=== PATIENT | female | born 1960 | race Hispanic/Latino ===

== ENCOUNTER 2020-09-02 21:17 | Inpatient (IN) | payer OTHER ==
[~2020-09-02] VITALS: Ht 160 cm; Wt 87.1 kg
[2020-09-02] MEDS ORDERED: ALBUTEROL SULF 0.083% NEB SOLN 3 ML NEB NEB STA (21:27)
[2020-09-02] MEDS ORDERED: IPRATROPIUM BROMIDE 0.02% 2.5 ML NEB NEB ONE (21:30)
[2020-09-02] MEDS ORDERED: METHYLPREDNISOLONE SOD SUCC 125 MG/2ML VIAL IV ONE (21:30)
[2020-09-02 21:47] LABS: BASOPHILS # (AUTO) 0.1 (0.0-0.1); BASOPHILS % 0.7 % (0.0-1.0); EOSINOPHILS # (AUTO) 0.2 (0.0-0.4); HEMATOCRIT 48.4 % (34.2-44.1); HEMOGLOBIN 15.4 g/dL (12.0-16.0); LYMPHOCYTES # (AUTO) 1.9 (1.0-3.2); LYMPHOCYTES % 11.5 % (18.0-39.1); MEAN CORPUSCULAR HEMOGLOBIN 29.5 pg (28-32); MEAN CORPUSCULAR HGB CONC 31.8 g/dL (31-35); MEAN CORPUSCULAR VOLUME 92.7 fL (81-99); MONOCYTES # (AUTO) 1.1 (0.2-0.8); MONOCYTES % 6.6 % (4.4-11.3); NEUTROPHILS % 79.5 % (38.7-80.0); PLATELET COUNT 304 x10e3/uL (140-360); RED BLOOD COUNT 5.22 x10e6/uL (3.6-5.1); RED CELL DISTRIBUTION WIDTH 14.6 % (11.7-14.4)
[2020-09-02 22:06] LABS: ALANINE AMINOTRANSFERASE 82 IU/L (0-55); ALBUMIN 3.4 g/dL (3.5-5.0); ALBUMIN/GLOBULIN RATIO 1.3 (0.8-2.0); ALKALINE PHOSPHATASE 133 IU/L (40-150); BLOOD UREA NITROGEN 11 mg/dL (7-26); BUN/CREATININE RATIO 13 (6-25); CALCIUM 8.4 mg/dL (8.4-10.2); CARBON DIOXIDE 32 mmol/L (22-29); CHLORIDE 91 mmol/L (98-107); CREATINE KINASE 43 IU/L (29-168); CREATININE, SERUM 0.85 mg/dL (0.57-1.11); EST GLOMERULAR FILTRATION RATE > 60 ML/MIN (60-); GLUCOSE 103 mg/dL (74-118); SODIUM 134 mmol/L (136-145)
[2020-09-02] MEDS ORDERED: ASPIRIN 81 MG CHEW TAB PO ONE (22:45)
[2020-09-02] MEDS ORDERED: SODIUM CHLORIDE FLUSH 10 ML SYR INJ PRN (23:00)
[2020-09-02] MEDS ORDERED: SODIUM CHLORIDE 0.9% 50ML 50 ML ONE (23:17)
[2020-09-02] MEDS: CEFTRIAXONE SOD 1 GM VIAL IV SCH (23:26)
[2020-09-02] MEDS: AZITHROMYCIN 500MG/SOD CHL 0.9% 250ML BAG IV SCH (23:42)
[2020-09-03] VITALS (8 sets, daily range): BP systolic 112–146; BP diastolic 67–85
[2020-09-03] MEDS ORDERED: INFLUENZA VIRUS VAC SPLIT INJ 0.5 ML SYR IM SCH (02:02)
[2020-09-03] MEDS: ALBUTEROL/IPRATROPIUM 3 ML NEB NEB SCH ×6 (03:20→23:45)
[2020-09-03 03:44] LABS: CREATINE KINASE MB 2.6 ng/mL (0-5.0)
[2020-09-03] MEDS ORDERED: ACETAMINOPHEN 325 MG TAB PO PRN (05:45)
[2020-09-03] MEDS ORDERED: METHYLPREDNISOLONE SOD SUCC 40 MG/ML VIAL 1ML IV SCH (06:00)
[2020-09-03] MEDS: ACETAMIN/BUTALBITAL/CAFFEINE TAB PO PRN ×2 (06:10→18:05)
[2020-09-03] MEDS: ASPIRIN 81 MG CHEW TAB PO SCH (10:45)
[2020-09-03] MEDS ORDERED: HYDRALAZINE HCL 20 MG/ML VIAL IV PRN (11:15)
[2020-09-03] MEDS ORDERED: MELATONIN 5 MG TABLET PO PRN (11:15)
[2020-09-03] MEDS ORDERED: ONDANSETRON HCL INJ 2MG/ML 2ML 2 MG/ML VIAL IV PRN (11:15)
[2020-09-03] MEDS ORDERED: ALBUTEROL/IPRATROPIUM 3 ML NEB NEB PRN (11:15)
[2020-09-03] MEDS ORDERED: POTASSIUM CHLORIDE 10MEQ EA PO ONE (12:30)
[2020-09-03] MEDS ORDERED: FUROSEMIDE INJ 10 MG/ML 4 ML VIAL IV ONE ×2 (12:30→19:00)
[2020-09-03 12:34] LABS: BASOPHILS % 0.2 % (0.0-1.0); EOSINOPHILS % 0.2 % (0.0-6.0); HEMATOCRIT 50.7 % (34.2-44.1); HEMOGLOBIN 15.9 g/dL (12.0-16.0); LYMPHOCYTES # (AUTO) 0.4 (1.0-3.2); LYMPHOCYTES % 3.3 % (18.0-39.1); MEAN CORPUSCULAR HEMOGLOBIN 29.1 pg (28-32); MEAN CORPUSCULAR HGB CONC 31.4 g/dL (31-35); MEAN CORPUSCULAR VOLUME 92.7 fL (81-99); MONOCYTES # (AUTO) 0.2 (0.2-0.8); MONOCYTES % 1.6 % (4.4-11.3); NEUTROPHILS # (AUTO) 10.9 (2.1-6.9); NEUTROPHILS % 93.9 % (38.7-80.0); PLATELET COUNT 294 x10e3/uL (140-360); RED BLOOD COUNT 5.47 x10e6/uL (3.6-5.1); RED CELL DISTRIBUTION WIDTH 14.3 % (11.7-14.4)
[2020-09-03 12:57] LABS: ANION GAP 18.4 mmol/L (8-16); BLOOD UREA NITROGEN 17 mg/dL (7-26); BUN/CREATININE RATIO 20 (6-25); CALCIUM 8.8 mg/dL (8.4-10.2); CARBON DIOXIDE 32 mmol/L (22-29); CHLORIDE 87 mmol/L (98-107); CREATININE, SERUM 0.86 mg/dL (0.57-1.11); EST GLOMERULAR FILTRATION RATE > 60 ML/MIN (60-); GLUCOSE 166 mg/dL (74-118); POTASSIUM 4.4 mmol/L (3.5-5.1); SODIUM 133 mmol/L (136-145)
[2020-09-03] MEDS ORDERED: ZOLPIDEM TARTRATE 5 MG TAB PO PRN (13:45)
[2020-09-03 14:03] LABS: CREATINE KINASE MB 2.5 ng/mL (0-5.0)
[2020-09-03] MEDS: NICOTINE 21 MG/EA PATCH TOP SCH (15:56)
[2020-09-03] MEDS: FAMOTIDINE 20 MG TAB PO SCH (17:14)
[2020-09-03] MEDS: METHYLPREDNISOLONE SOD SUCC 40 MG/ML VIAL 1ML IV SCH (17:14)
[2020-09-03] MEDS ORDERED: INTEGRA F CAPS1 EACH PO (17:51)
[2020-09-03] MEDS ORDERED: CHANTIX1 MG PO (17:51)
[2020-09-03] MEDS ORDERED: VITAMIN B-225 MG PO (17:51)
[2020-09-03] MEDS ORDERED: SYMBICORT 16010.2 GM INH (17:51)
[2020-09-03] MEDS ORDERED: TRAZODONE HCL100 MG PO (17:51)
[2020-09-03] MEDS ORDERED: FOLIC ACID0.4 MG PO (17:51)
[2020-09-03] MEDS ORDERED: ATENOLOL50 MG PO (17:51)
[2020-09-03] MEDS ORDERED: ALBUTEROL IH (17:51)
[2020-09-03] MEDS ORDERED: PROAIR HFA INH8.5 GM INH (17:51)
[2020-09-03] MEDS ORDERED: VITAMIN B-121000 MCG PO (17:51)
[2020-09-03] MEDS: BUDESONIDE/FORMOTEROL 160/4.5MCG INHALER INH SCH (19:32)
[2020-09-03] MEDS ORDERED: SODIUM CHLORIDE 0.9% 50ML 50 ML ONE (22:48)
[2020-09-03] MEDS: CEFTRIAXONE SOD 1 GM VIAL IV SCH (23:00)
[2020-09-03] MEDS ORDERED: SODIUM CHLORIDE 0.9% 250ML 250 ML ONE (23:08)
[2020-09-03] MEDS: AZITHROMYCIN 500MG/SOD CHL 0.9% 250ML BAG IV SCH (23:30)
[2020-09-04] VITALS (9 sets, daily range): BP systolic 121–130; BP diastolic 54–72
[2020-09-04] MEDS: ALBUTEROL/IPRATROPIUM 3 ML NEB NEB SCH ×6 (03:40→23:40)
[2020-09-04] MEDS: METHYLPREDNISOLONE SOD SUCC 40 MG/ML VIAL 1ML IV SCH ×2 (06:00→17:33)
[2020-09-04] MEDS: FAMOTIDINE 20 MG TAB PO SCH ×2 (08:39→17:33)
[2020-09-04] MEDS: ATENOLOL 50 MG TAB PO SCH (08:42)
[2020-09-04] MEDS: ASPIRIN 81 MG CHEW TAB PO SCH (08:42)
[2020-09-04] MEDS: LISINOPRIL 10 MG TAB PO SCH (08:42)
[2020-09-04] MEDS: ACETAMIN/BUTALBITAL/CAFFEINE TAB PO PRN (08:42)
[2020-09-04] MEDS: NICOTINE 21 MG/EA PATCH TOP SCH (08:43)
[2020-09-04] MEDS: BUDESONIDE/FORMOTEROL 160/4.5MCG INHALER INH SCH ×2 (08:55→19:25)
[2020-09-04] MEDS ORDERED: HYDROCHLOROTHIAZIDE 25 MG TAB PO SCH (09:00)
[2020-09-04] MEDS: FUROSEMIDE INJ 10 MG/ML 2 ML VIAL IV SCH (14:23)
[2020-09-04] MEDS: POTASSIUM CHLORIDE 10MEQ EA PO SCH (14:23)
[2020-09-04] MEDS ORDERED: SODIUM CHLORIDE 0.9% 50ML 50 ML ONE (22:51)
[2020-09-04] MEDS: CEFTRIAXONE SOD 1 GM VIAL IV SCH (23:00)
[2020-09-04] MEDS: AZITHROMYCIN 500MG/SOD CHL 0.9% 250ML BAG IV SCH (23:45)
[2020-09-05] VITALS (7 sets, daily range): BP systolic 122–140; BP diastolic 64–87
[2020-09-05] MEDS: ACETAMIN/BUTALBITAL/CAFFEINE TAB PO PRN (02:00)
[2020-09-05] MEDS: ALBUTEROL/IPRATROPIUM 3 ML NEB NEB SCH ×5 (02:49→20:43)
[2020-09-05] MEDS: METHYLPREDNISOLONE SOD SUCC 40 MG/ML VIAL 1ML IV SCH ×2 (06:22→16:25)
[2020-09-05 06:52] LABS: BASOPHILS % 0.1 % (0.0-1.0); HEMATOCRIT 47.3 % (34.2-44.1); HEMOGLOBIN 14.4 g/dL (12.0-16.0); LYMPHOCYTES # (AUTO) 0.5 (1.0-3.2); LYMPHOCYTES % 2.7 % (18.0-39.1); MEAN CORPUSCULAR HEMOGLOBIN 29.4 pg (28-32); MEAN CORPUSCULAR HGB CONC 30.4 g/dL (31-35); MEAN CORPUSCULAR VOLUME 96.7 fL (81-99); MONOCYTES # (AUTO) 0.9 (0.2-0.8); MONOCYTES % 4.7 % (4.4-11.3); NEUTROPHILS # (AUTO) 17.2 (2.1-6.9); NEUTROPHILS % 91.6 % (38.7-80.0); PLATELET COUNT 247 x10e3/uL (140-360); RED BLOOD COUNT 4.89 x10e6/uL (3.6-5.1); RED CELL DISTRIBUTION WIDTH 14.5 % (11.7-14.4)
[2020-09-05] MEDS: BUDESONIDE/FORMOTEROL 160/4.5MCG INHALER INH SCH ×2 (07:03→20:43)
[2020-09-05 07:13] LABS: ALANINE AMINOTRANSFERASE 42 IU/L (0-55); ALBUMIN 3.4 g/dL (3.5-5.0); ALBUMIN/GLOBULIN RATIO 1.3 (0.8-2.0); ALKALINE PHOSPHATASE 87 IU/L (40-150); ANION GAP 11.5 mmol/L (8-16); BLOOD UREA NITROGEN 15 mg/dL (7-26); BUN/CREATININE RATIO 19 (6-25); CALCIUM 8.7 mg/dL (8.4-10.2); CARBON DIOXIDE 39 mmol/L (22-29); CHLORIDE 88 mmol/L (98-107); CREATININE, SERUM 0.79 mg/dL (0.57-1.11); EST GLOMERULAR FILTRATION RATE > 60 ML/MIN (60-); GLUCOSE 140 mg/dL (74-118); POTASSIUM 4.5 mmol/L (3.5-5.1); SODIUM 134 mmol/L (136-145)
[2020-09-05] MEDS: POTASSIUM CHLORIDE 10MEQ EA PO SCH (08:11)
[2020-09-05] MEDS: FAMOTIDINE 20 MG TAB PO SCH ×2 (08:11→16:25)
[2020-09-05] MEDS: NICOTINE 21 MG/EA PATCH TOP SCH (08:11)
[2020-09-05] MEDS: ATENOLOL 50 MG TAB PO SCH (08:11)
[2020-09-05] MEDS: FUROSEMIDE INJ 10 MG/ML 2 ML VIAL IV SCH (08:11)
[2020-09-05] MEDS: LISINOPRIL 10 MG TAB PO SCH (08:11)
[2020-09-05] MEDS: ASPIRIN 81 MG CHEW TAB PO SCH (08:11)
[2020-09-05 08:17] LABS: LYMPHOCYTES % (MANUAL) 3 % (19-48); MONOCYTES % (MANUAL) 7 % (3.4-9.0); NEUTROPHILS % (MANUAL) 90 % (40-74)
[2020-09-05 08:18] LABS: PLATELET ESTIMATE ADEQUATE; PLATELET MORPHOLOGY COMMENT RARE EDTA CLUMPING; RBC MORPHOLOGY COMMENT NORMAL
[2020-09-05] MEDS ORDERED: AZITHROMYCIN 500MG/NS 250 ML 250 ML IV ONE (17:00)
[2020-09-05] MEDS ORDERED: CEFTRIAXONE SOD 1 GM/50 ML BAG IV ONE (17:00)
[2020-09-05] MEDS ORDERED: PROAIR HFA INH8.5 GM INH (17:05)
[2020-09-05] MEDS ORDERED: PREDNISONE10 MG PO (17:05)
[2020-09-05] MEDS ORDERED: CEFDINIR300 MG PO (17:05)
[2020-09-05] MEDS ORDERED: NICOTINE PATCH1 EAC2 TOP (17:08)
[2020-09-05] MEDS ORDERED: CEFTRIAXONE SOD 1 GM in SODIUM CHLORIDE 0.9% 50ML 50 ML IV ONE (17:45)
[2020-09-05] MEDS ORDERED: INFLUENZA VIRUS VAC SPLIT INJ 0.5 ML SYR IM NR (20:00)
== END 2020-09-05 20:45 | disposition home or self-care (01) | DRG 280 ==
LOC: ER 21:29 → ERHOLD 22:59 → MED/SURG3 09-03 00:08
PROVIDERS: ADMIT Internal Medicine; ATTEND Internal Medicine
DX: I21.A1 Myocardial infarction type 2 (principal); I50.43 Acute on chronic combined systolic (congestive) and diastolic (congestive) heart failure; J44.1 Chronic obstructive pulmonary disease with (acute) exacerbation; E87.1 Hypo-osmolality and hyponatremia; I11.0 Hypertensive heart disease with heart failure; F17.210 Nicotine dependence, cigarettes, uncomplicated; Z20.822 Contact with and (suspected) exposure to COVID-19; R09.02 Hypoxemia; I07.1 Rheumatic tricuspid insufficiency
CPT/HCPCS: 36415; 71045; 71250; 80048; 80053; 82550; 82553; 83880; 84484; 85025; 85379; 87040; 93005; 93306; 94640; 94664; 99284; J0456; J0696; J1940; J2920; J2930; J7050; U0002

== ENCOUNTER 2021-04-23 22:21 | Emergency (ER) | payer OTHER ==
[~2021-04-23] VITALS: Ht 165.1 cm; Wt 81.6 kg
[~2021-04-23 22:21] MED LIST: ALBUTEROL IH; ATENOLOL50 MG PO; CEFDINIR300 MG PO; CHANTIX1 MG PO; FOLIC ACID0.4 MG PO; INTEGRA F CAPS1 EACH PO; NICOTINE PATCH1 EAC2 TOP; PREDNISONE10 MG PO; PROAIR HFA INH8.5 GM INH; SYMBICORT 16010.2 GM INH; TRAZODONE HCL100 MG PO; VITAMIN B-121000 MCG PO; VITAMIN B-225 MG PO
[2021-04-23] MEDS ORDERED: KETOROLAC TROMETHAMINE 30 MG/ML VIAL IV STA (22:39)
[2021-04-23] MEDS ORDERED: ASPIRIN 81 MG CHEW TAB PO STA (22:39)
[2021-04-23] MEDS ORDERED: ALBUTEROL/IPRATROPIUM 3 ML NEB NEB ONE (22:45)
[2021-04-23] MEDS ORDERED: METHYLPREDNISOLONE SOD SUCC 125 MG/2ML VIAL IV ONE (22:45)
[2021-04-23 22:52] LABS: BASOPHILS # (AUTO) 0.1 (0.0-0.1); BASOPHILS % 0.7 % (0.0-1.0); EOSINOPHILS # (AUTO) 0.1 (0.0-0.4); EOSINOPHILS % 0.8 % (0.0-6.0); HEMATOCRIT 31.2 % (34.2-44.1); HEMOGLOBIN 10.1 g/dL (12.0-16.0); LYMPHOCYTES # (AUTO) 1.9 (1.0-3.2); LYMPHOCYTES % 14.2 % (18.0-39.1); MEAN CORPUSCULAR HEMOGLOBIN 28.9 pg (28-32); MEAN CORPUSCULAR HGB CONC 32.4 g/dL (31-35); MEAN CORPUSCULAR VOLUME 89.1 fL (81-99); MONOCYTES % 7.4 % (4.4-11.3); NEUTROPHILS % 76.4 % (38.7-80.0); PLATELET COUNT 378 x10e3/uL (140-360); RED CELL DISTRIBUTION WIDTH 14.1 % (11.7-14.4)
[2021-04-23 22:56] LABS: INR 0.82
[2021-04-23 22:57] LABS: PARTIAL THROMBOPLASTIN TIME 28.9 seconds (23.8-35.5)
[2021-04-23 23:07] LABS: ALANINE AMINOTRANSFERASE 7 IU/L (0-55); ALBUMIN 2.7 g/dL (3.5-5.0); ALKALINE PHOSPHATASE 108 IU/L (40-150); ANION GAP 15.6 mmol/L (8-16); BLOOD UREA NITROGEN < 5 mg/dL (7-26); CHLORIDE 78 mmol/L (98-107); CREATINE KINASE 24 IU/L (29-168); EST GLOMERULAR FILTRATION RATE 74 ML/MIN (60-); GLUCOSE 106 mg/dL (74-118); SODIUM 132 mmol/L (136-145)
[2021-04-23 23:14] LABS: BUN/CREATININE RATIO 6 (6-25)
[2021-04-23 23:15] LABS: CARBON DIOXIDE 41 mmol/L (22-29); POTASSIUM 2.6 mmol/L (3.5-5.1)
[2021-04-23] MEDS ORDERED: POTASSIUM CHLORIDE 20 MEQ TAB CR PO STA (23:15)
[2021-04-23] MEDS ORDERED: POTASSIUM CHLORIDE 20MEQ/100ML 100 ML IV ONE (23:15)
[2021-04-23] MEDS ORDERED: SODIUM CHLORIDE 0.9% 1000ML 1,000 ML IV STA (23:22)
[2021-04-23] MEDS ORDERED: MAGNESIUM SULF 1GRAM/DEXTROSE 100 ML IV ONE (23:30)
[2021-04-24] MEDS ORDERED: MAGNESIUM SULF 1GRAM/DEXTROSE 100 ML IV ONE (03:02)
[2021-04-24 04:25] LABS: ANION GAP 15.9 mmol/L (8-16); CREATININE, SERUM 0.94 mg/dL (0.57-1.11)
[2021-04-24 04:28] LABS: POTASSIUM 3.9 mmol/L (3.5-5.1)
[2021-04-24] MEDS ORDERED: PREDNISONE50 MG PO (04:31)
[2021-04-24] MEDS ORDERED: AZITHROMYCIN250 MG PO (04:31)
[2021-04-24 05:13] VITALS: BP 98/51
== END 2021-04-24 05:16 | disposition home or self-care (01) ==
LOC: ER 22:25
DX: R06.03 Acute respiratory distress (principal); J44.1 Chronic obstructive pulmonary disease with (acute) exacerbation; I11.0 Hypertensive heart disease with heart failure; I50.9 Heart failure, unspecified; I25.10 Atherosclerotic heart disease of native coronary artery without angina pectoris; E87.6 Hypokalemia; R09.02 Hypoxemia; F17.203 Nicotine dependence unspecified, with withdrawal
CPT/HCPCS: 36415; 70450; 71045; 80048; 80053; 82550; 82553; 83735; 83880; 84484; 85025; 85610; 85730; 93005; 94640; 94799; 99284; J0456; J1885; J2930; J3475; J3480; J7050

== ENCOUNTER 2021-05-27 11:13 | Emergency (ER) | payer OTHER ==
[~2021-05-27] VITALS: Ht 165.1 cm; Wt 81.6 kg
[~2021-05-27 11:13] MED LIST changes: +AZITHROMYCIN250 MG PO; +PREDNISONE50 MG PO
[2021-05-27] MEDS ORDERED: VENTOLIN HFA18 GM INH ×2 (11:29→11:41)
[2021-05-27] MEDS ORDERED: PREDNISONE50 MG PO (11:29)
[2021-05-27] MEDS ORDERED: CEPHALEXIN500 MG PO (11:29)
[2021-05-27] MEDS ORDERED: BROMFED DM COU118 ML PO (11:29)
== END 2021-05-27 12:12 | disposition home or self-care (01) ==
LOC: ER 11:18
DX: J44.9 Chronic obstructive pulmonary disease, unspecified (principal); I10 Essential (primary) hypertension; I50.9 Heart failure, unspecified; I25.10 Atherosclerotic heart disease of native coronary artery without angina pectoris; R94.31 Abnormal electrocardiogram [ECG] [EKG]
CPT/HCPCS: 93005; 99283

== ENCOUNTER 2022-02-21 20:53 | Emergency (ER) | payer OTHER ==
[~2022-02-21] VITALS: Ht 165.1 cm; Wt 81.6 kg
[~2022-02-21 20:53] MED LIST changes: +BROMFED DM COU118 ML PO; +CEPHALEXIN500 MG PO; +VENTOLIN HFA18 GM INH
== END 2022-02-21 22:11 | disposition home or self-care (01) ==
LOC: ER 21:11
DX: M25.561 Pain in right knee (principal); M13.861 Other specified arthritis, right knee; I10 Essential (primary) hypertension; J44.9 Chronic obstructive pulmonary disease, unspecified; I50.9 Heart failure, unspecified; I25.10 Atherosclerotic heart disease of native coronary artery without angina pectoris
CPT/HCPCS: 99282

== ENCOUNTER 2022-04-29 20:42 | Emergency (ER) | payer OTHER ==
[~2022-04-29] VITALS: Ht 165.1 cm; Wt 77.1 kg
[2022-04-29] MEDS ORDERED: ONDANSETRON HCL INJ 2MG/ML 2ML 2 MG/ML VIAL IV STA (22:12)
[2022-04-30] MEDS ORDERED: OXYBUTYNIN CHLOR5 M1 PO (00:22)
[2022-04-30 00:45] VITALS: BP 134/60
== END 2022-04-30 00:45 | disposition home or self-care (01) ==
LOC: FSED 20:59
DX: R20.2 Paresthesia of skin (principal); R07.89 Other chest pain; R39.11 Hesitancy of micturition; I10 Essential (primary) hypertension; J44.9 Chronic obstructive pulmonary disease, unspecified; I50.9 Heart failure, unspecified; I25.10 Atherosclerotic heart disease of native coronary artery without angina pectoris; Z99.81 Dependence on supplemental oxygen; F17.210 Nicotine dependence, cigarettes, uncomplicated
CPT/HCPCS: 70450; 71046; 80048; 82553; 83880; 85025; 87400; 93005; 96374; 99284; J2405

== ENCOUNTER 2022-05-22 12:18 | Emergency (ER) | payer OTHER ==
[~2022-05-22] VITALS: Ht 165.1 cm; Wt 77.1 kg
[~2022-05-22 12:18] MED LIST changes: +ATORVASTATIN CA20 MG PO; +BACLOFEN10 MG PO; +FUROSEMIDE40 MG PO; +LIPITOR20 MG PO; +LOSARTAN POTASS25 MG PO; +OXYBUTYNIN CHLOR5 M1 PO; +POTASSIUM CHLO10 ME1 PO
== END 2022-05-22 14:06 | disposition home or self-care (01) ==
LOC: ER 12:37
DX: R33.9 Retention of urine, unspecified (principal); I10 Essential (primary) hypertension; J44.9 Chronic obstructive pulmonary disease, unspecified; I50.9 Heart failure, unspecified; I25.10 Atherosclerotic heart disease of native coronary artery without angina pectoris; Z99.81 Dependence on supplemental oxygen
CPT/HCPCS: 51700; 99282

== ENCOUNTER 2022-06-16 13:27 | Inpatient (IN) | payer OTHER ==
[~2022-06-16] VITALS: Ht 165.1 cm; Wt 77.1 kg
[2022-06-16 14:43] LABS: BASOPHILS # (AUTO) 0.1 (0.0-0.1); BASOPHILS % 0.5 % (0.0-1.0); EOSINOPHILS # (AUTO) 0.2 (0.0-0.4); HEMATOCRIT 42.8 % (34.2-44.1); HEMOGLOBIN 12.3 g/dL (12.0-16.0); LYMPHOCYTES % 12.2 % (18.0-39.1); MEAN CORPUSCULAR HEMOGLOBIN 25.3 pg (28-32); MEAN CORPUSCULAR HGB CONC 28.7 g/dL (31-35); MEAN CORPUSCULAR VOLUME 87.9 fL (81-99); MONOCYTES # (AUTO) 0.8 (0.2-0.8); MONOCYTES % 4.9 % (4.4-11.3); NEUTROPHILS # (AUTO) 13.3 (2.1-6.9); NEUTROPHILS % 80.9 % (38.7-80.0); PLATELET COUNT 495 x10e3/uL (140-360); RED BLOOD COUNT 4.87 x10e6/uL (3.6-5.1); RED CELL DISTRIBUTION WIDTH 14.6 % (11.7-14.4)
[2022-06-16] MEDS ORDERED: SODIUM CHLORIDE FLUSH 10 ML SYR IV PRN (14:45)
[2022-06-16] MEDS ORDERED: ASPIRIN 81 MG CHEW TAB PO ONE ×2 (15:00→17:45)
[2022-06-16 15:07] LABS: ALBUMIN 3.3 g/dL (3.5-5.0); ALBUMIN/GLOBULIN RATIO 0.9 (0.8-2.0); ANION GAP 14.9 mmol/L (8-16); CALCIUM 9.6 mg/dL (8.4-10.2); CREATININE, SERUM 0.67 mg/dL (0.57-1.11)
[2022-06-16 15:10] LABS: POTASSIUM 2.9 mmol/L (3.5-5.1)
[2022-06-16] MEDS ORDERED: CEFTRIAXONE 1 GM VIAL IV ONE (15:30)
[2022-06-16] MEDS ORDERED: CEFTRIAXONE 1 GM VIAL ONE (15:35)
[2022-06-16] MEDS ORDERED: NIRMATRELVIR/RITONAVIR 1 EACH BOX PO SCH (15:45)
[2022-06-16] MEDS ORDERED: POTASSIUM CHLORIDE 20 MEQ TAB CR PO NR (15:45)
[2022-06-16 17:35] LABS: CLARITY,URINE CLEAR (CLEAR); COLOR,URINE YELLOW (YELLOW); LEUKOCYTE ESTERASE ,URINE SMALL (NEGATIVE); NITRITE,URINE NEGATIVE (NEGATIVE)
[2022-06-16 17:36] LABS: KETONES,URINE TRACE (NEGATIVE); PROTEIN,URINE DIPSTICK 2+ (NEGATIVE); URINE UROBILINOGEN 1 mg/dL (0.2 - 1)
[2022-06-16 17:43] LABS: BACTERIA,URINE FEW /HPF; EPITHELIAL CELLS,URINE FEW /LPF
[2022-06-16] MEDS ORDERED: SODIUM CHLORIDE FLUSH 10 ML SYR INJ PRN (17:45)
[2022-06-16] MEDS ORDERED: ONDANSETRON HCL INJ 2MG/ML 2ML 2 MG/ML VIAL IV PRN (17:45)
[2022-06-16 19:30] VITALS: BP_SYST 4
[2022-06-16 19:30] LABS: CREATINE KINASE MB 0.5 ng/mL (0-5.0)
[2022-06-16 20:32] VITALS: BP 151/67
[2022-06-16] MEDS ORDERED: POLYETHYLENE GLYCOL 3350 17 GM PACK PO PRN (21:15)
[2022-06-16] MEDS ORDERED: ACETAMINOPHEN 325 MG TAB PO PRN (21:15)
[2022-06-16] MEDS ORDERED: METOPROLOL TARTRATE INJ 1 MG/ML VIAL IV PRN (21:15)
[2022-06-16] MEDS ORDERED: TEMAZEPAM 7.5 MG CAP PO PRN (21:15)
[2022-06-16] MEDS ORDERED: CARAFATE1 GM/10 ML PO (21:47)
[2022-06-16] MEDS ORDERED: ULTRAM 50MG50 MG PO (21:53)
[2022-06-16] MEDS ORDERED: NEURONTIN300 MG PO (21:53)
[2022-06-16] MEDS ORDERED: STIOLTO RESPIMAT4 GM (22:00)
[2022-06-16] MEDS ORDERED: BREO ELLIPTA 21 EACH INH (22:00)
[2022-06-16] MEDS ORDERED: INCRUSE ELLI62.5 MCG (22:01)
[2022-06-16] MEDS: GABAPENTIN 300 MG CAP PO SCH (22:38)
[2022-06-17] VITALS (7 sets, daily range): BP systolic 125–155; BP diastolic 58–73
[2022-06-17 03:20] LABS: CREATINE KINASE MB 0.6 ng/mL (0-5.0)
[2022-06-17 06:35] LABS: BASOPHILS # (AUTO) 0.1 (0.0-0.1); BASOPHILS % 0.7 % (0.0-1.0); EOSINOPHILS # (AUTO) 0.2 (0.0-0.4); HEMATOCRIT 36.2 % (34.2-44.1); HEMOGLOBIN 11.2 g/dL (12.0-16.0); LYMPHOCYTES # (AUTO) 1.9 (1.0-3.2); MEAN CORPUSCULAR HEMOGLOBIN 25.7 pg (28-32); MEAN CORPUSCULAR HGB CONC 30.9 g/dL (31-35); MEAN CORPUSCULAR VOLUME 83.2 fL (81-99); MONOCYTES # (AUTO) 0.9 (0.2-0.8); MONOCYTES % 5.9 % (4.4-11.3); NEUTROPHILS # (AUTO) 11.6 (2.1-6.9); NEUTROPHILS % 78.4 % (38.7-80.0); PLATELET COUNT 406 x10e3/uL (140-360); RED BLOOD COUNT 4.35 x10e6/uL (3.6-5.1); RED CELL DISTRIBUTION WIDTH 14.5 % (11.7-14.4)
[2022-06-17 07:09] LABS: ALBUMIN 2.8 g/dL (3.5-5.0); ALBUMIN/GLOBULIN RATIO 0.9 (0.8-2.0); ANION GAP 11.9 mmol/L (8-16); CALCIUM 9.2 mg/dL (8.4-10.2); CREATININE, SERUM 0.64 mg/dL (0.57-1.11)
[2022-06-17 07:13] LABS: POTASSIUM 2.9 mmol/L (3.5-5.1)
[2022-06-17 07:32] LABS: CHOL/HDL RATIO 3.3 (3.0-3.6); MAGNESIUM 1.6 MG/DL (1.3-2.1)
[2022-06-17 07:55] LABS: THYROID STIMULATING HORMONE 1.16 uIU/mL (0.350-4.940)
[2022-06-17] MEDS ORDERED: MAGNESIUM SULFATE 2GM/50ML 50 ML IV ONE (08:00)
[2022-06-17] MEDS: FAMOTIDINE 20 MG TAB PO SCH ×2 (08:23→16:30)
[2022-06-17] MEDS: GABAPENTIN 300 MG CAP PO SCH ×3 (08:23→21:52)
[2022-06-17] MEDS: DOCUSATE SODIUM 100 MG CAP PO SCH ×2 (08:24→16:30)
[2022-06-17] MEDS ORDERED: SODIUM CHLORIDE 0.9% 250ML 250 ML ONE (08:32)
[2022-06-17] MEDS: NIRMATRELVIR/RITONAVIR 1 EACH BOX PO SCH ×2 (09:56→21:53)
[2022-06-17 10:07] LABS: CREATINE KINASE MB 0.6 ng/mL (0-5.0)
[2022-06-17] MEDS ORDERED: TEMAZEPAM 15 MG CAP PO PRN (19:45)
[2022-06-17] MEDS ORDERED: POTASSIUM CHLORIDE 20 MEQ TAB CR PO ONE (20:00)
[2022-06-17] MEDS ORDERED: ONDANSETRON HCL 4 MG ORAL DISINTEGRATING TAB PO PRN (20:00)
[2022-06-18] VITALS: BP 130/63
[2022-06-18 04:00] VITALS: BP 137/70
[2022-06-18 06:20] LABS: BASOPHILS # (AUTO) 0.1 (0.0-0.1); BASOPHILS % 0.8 % (0.0-1.0); EOSINOPHILS # (AUTO) 0.1 (0.0-0.4); EOSINOPHILS % 1.1 % (0.0-6.0); HEMATOCRIT 37.8 % (34.2-44.1); HEMOGLOBIN 10.7 g/dL (12.0-16.0); LYMPHOCYTES # (AUTO) 1.9 (1.0-3.2); LYMPHOCYTES % 16.4 % (18.0-39.1); MEAN CORPUSCULAR HEMOGLOBIN 25.4 pg (28-32); MEAN CORPUSCULAR HGB CONC 28.3 g/dL (31-35); MEAN CORPUSCULAR VOLUME 89.8 fL (81-99); MONOCYTES # (AUTO) 0.9 (0.2-0.8); MONOCYTES % 7.5 % (4.4-11.3); NEUTROPHILS # (AUTO) 8.7 (2.1-6.9); NEUTROPHILS % 73.6 % (38.7-80.0); PLATELET COUNT 376 x10e3/uL (140-360); RED BLOOD COUNT 4.21 x10e6/uL (3.6-5.1); RED CELL DISTRIBUTION WIDTH 14.6 % (11.7-14.4)
[2022-06-18 07:00] LABS: ANION GAP 12.9 mmol/L (8-16); CREATININE, SERUM 0.69 mg/dL (0.57-1.11); MAGNESIUM 1.9 MG/DL (1.3-2.1); POTASSIUM 3.9 mmol/L (3.5-5.1)
[2022-06-18 08:23] VITALS: BP 147/69
[2022-06-18] MEDS: DOCUSATE SODIUM 100 MG CAP PO SCH (08:45)
[2022-06-18] MEDS: FAMOTIDINE 20 MG TAB PO SCH (08:45)
[2022-06-18] MEDS: NIRMATRELVIR/RITONAVIR 1 EACH BOX PO SCH (08:45)
[2022-06-18] MEDS: GABAPENTIN 300 MG CAP PO SCH (08:45)
[2022-06-18 08:54] VITALS: BP 147/69
[2022-06-18] MEDS ORDERED: ZINC SULFATE 50 MG CAP PO SCH (09:00)
[2022-06-18] MEDS ORDERED: ASCORBIC ACID 500 MG TAB PO SCH (09:00)
[2022-06-18] MEDS ORDERED: ENOXAPARIN 30 MG/0.3 ML SYR SC SCH (09:00)
[2022-06-18] MEDS ORDERED: CHOLECALCIFEROL 400 UNIT TAB PO SCH (09:00)
[2022-06-18] MEDS ORDERED: ONDANSETRON ODT4 MG PO (10:46)
[2022-06-18] MEDS ORDERED: ASCORBIC ACID500 MG PO (10:46)
[2022-06-18] MEDS ORDERED: Zinc Sulfate PO (10:46)
[2022-06-18] MEDS ORDERED: PAXLOVID 300-11 EACH PO (10:46)
[2022-06-18] MEDS ORDERED: Cholecalciferol PO (10:46)
[2022-06-18] MEDS ORDERED: ACETAMINOPHEN325 M1 PO (10:46)
[2022-06-18] MEDS ORDERED: CEFUROXIME250 MG PO (10:46)
[2022-06-18 12:22] VITALS: BP 146/72
== END 2022-06-18 12:10 | disposition home or self-care (01) | DRG 871 ==
LOC: ER 13:35 → ERHOLD 17:34 → MED/SURG3 21:43 → OBSVTOIN 06-18 08:24
PROVIDERS: ADMIT Internal Medicine; ATTEND Internal Medicine
PROC: 3E03329 Introduction of Other Anti-infective into Peripheral Vein, Percutaneous Approach (ICD-10-PCS; principal; 2022-06-18)
PROC: 8E0ZXY6 Isolation (ICD-10-PCS; 2022-06-18)
DX: A41.9 Sepsis, unspecified organism (principal); U07.1 COVID-19; N39.0 Urinary tract infection, site not specified; I50.32 Chronic diastolic (congestive) heart failure; R53.1 Weakness; J44.9 Chronic obstructive pulmonary disease, unspecified; Z99.81 Dependence on supplemental oxygen; I11.0 Hypertensive heart disease with heart failure; E83.42 Hypomagnesemia; E87.6 Hypokalemia; R32 Unspecified urinary incontinence; R20.0 Anesthesia of skin; I25.10 Atherosclerotic heart disease of native coronary artery without angina pectoris; G62.9 Polyneuropathy, unspecified
CPT/HCPCS: 36415; 70450; 71045; 71046; 80048; 80053; 80061; 81001; 82550; 82553; 83036; 83605; 83735; 83880; 84100; 84443; 84484; 85025; 87040; 87086; 93005; 94760; 94799; 99285; G0378; J0696; J1650; J3475; J7050

== ENCOUNTER 2022-07-05 20:28 | Observation (INO) | payer OTHER ==
[~2022-07-05] VITALS: Ht 165.1 cm; Wt 77.1 kg
[~2022-07-05 20:28] MED LIST changes: +ACETAMINOPHEN325 M1 PO; +ASCORBIC ACID500 MG PO; +BREO ELLIPTA 21 EACH INH; +CARAFATE1 GM/10 ML PO; +CEFUROXIME250 MG PO; +Cholecalciferol PO; +INCRUSE ELLI62.5 MCG; +NEURONTIN300 MG PO; +ONDANSETRON ODT4 MG PO; +PAXLOVID 300-11 EACH PO; +STIOLTO RESPIMAT4 GM; +ULTRAM 50MG50 MG PO; +Zinc Sulfate PO
[2022-07-05] MEDS ORDERED: ONDANSETRON HCL INJ 2MG/ML 2ML 2 MG/ML VIAL IV STA (20:41)
[2022-07-05] MEDS ORDERED: ASPIRIN 81 MG CHEW TAB PO ONE ×2 (20:45→22:30)
[2022-07-05] MEDS ORDERED: Morphine 4mg INJECTION 4 MG/ML INJ IV ONE (20:45)
[2022-07-05 20:51] LABS: BASOPHILS # (AUTO) 0.1 (0.0-0.1); BASOPHILS % 0.7 % (0.0-1.0); EOSINOPHILS # (AUTO) 0.2 (0.0-0.4); EOSINOPHILS % 1.2 % (0.0-6.0); HEMATOCRIT 39.5 % (34.2-44.1); HEMOGLOBIN 12.1 g/dL (12.0-16.0); LYMPHOCYTES # (AUTO) 1.8 (1.0-3.2); LYMPHOCYTES % 12.9 % (18.0-39.1); MEAN CORPUSCULAR HGB CONC 30.6 g/dL (31-35); MEAN CORPUSCULAR VOLUME 84.9 fL (81-99); MONOCYTES # (AUTO) 0.7 (0.2-0.8); MONOCYTES % 5.2 % (4.4-11.3); NEUTROPHILS # (AUTO) 10.8 (2.1-6.9); NEUTROPHILS % 79.4 % (38.7-80.0); PLATELET COUNT 299 x10e3/uL (140-360); RED BLOOD COUNT 4.65 x10e6/uL (3.6-5.1); RED CELL DISTRIBUTION WIDTH 15.6 % (11.7-14.4)
[2022-07-05 20:59] LABS: INR 0.91; PROTHROMBIN TIME 12.5 seconds (11.9-14.5)
[2022-07-05 21:00] LABS: PARTIAL THROMBOPLASTIN TIME 32.7 seconds (23.8-35.5)
[2022-07-05 21:07] LABS: ALBUMIN 3.5 g/dL (3.5-5.0); ALBUMIN/GLOBULIN RATIO 1.1 (0.8-2.0); CALCIUM 9.8 mg/dL (8.4-10.2); CREATININE, SERUM 0.64 mg/dL (0.57-1.11)
[2022-07-05 21:15] LABS: CREATINE KINASE MB 0.7 ng/mL (0-5.0)
[2022-07-05] MEDS ORDERED: ONDANSETRON HCL INJ 2MG/ML 2ML 2 MG/ML VIAL IV PRN (22:30)
[2022-07-05] MEDS ORDERED: SODIUM CHLORIDE FLUSH 10 ML SYR INJ PRN (22:30)
[2022-07-05] MEDS ORDERED: TRELEGY ELLIPT1 EACH INH (23:41)
[2022-07-05 23:49] VITALS: BP 137/53
[2022-07-06] VITALS: BP 137/53
[2022-07-06 00:08] VITALS: BP 137/53
[2022-07-06] MEDS: Morphine 2mg Syringe 2 MG/ML SYR IV PRN ×2 (02:10→06:54)
[2022-07-06 04:00] VITALS: BP 122/52
[2022-07-06 05:55] LABS: BASOPHILS # (AUTO) 0.1 (0.0-0.1); BASOPHILS % 0.6 % (0.0-1.0); EOSINOPHILS # (AUTO) 0.3 (0.0-0.4); EOSINOPHILS % 2.5 % (0.0-6.0); HEMATOCRIT 37.5 % (34.2-44.1); HEMOGLOBIN 10.5 g/dL (12.0-16.0); LYMPHOCYTES # (AUTO) 1.6 (1.0-3.2); LYMPHOCYTES % 13.7 % (18.0-39.1); MEAN CORPUSCULAR HEMOGLOBIN 25.5 pg (28-32); MEAN CORPUSCULAR VOLUME 91.2 fL (81-99); MONOCYTES # (AUTO) 0.8 (0.2-0.8); MONOCYTES % 6.8 % (4.4-11.3); NEUTROPHILS # (AUTO) 8.6 (2.1-6.9); PLATELET COUNT 287 x10e3/uL (140-360); RED BLOOD COUNT 4.11 x10e6/uL (3.6-5.1); RED CELL DISTRIBUTION WIDTH 15.5 % (11.7-14.4)
[2022-07-06 06:24] LABS: CREATINE KINASE 10 IU/L (29-168)
[2022-07-06 06:34] LABS: ALBUMIN/GLOBULIN RATIO 1.1 (0.8-2.0); ANION GAP 12.1 mmol/L (8-16); CALCIUM 8.9 mg/dL (8.4-10.2); CREATININE, SERUM 0.65 mg/dL (0.57-1.11); POTASSIUM 4.1 mmol/L (3.5-5.1)
[2022-07-06 08:15] VITALS: BP 150/61
[2022-07-06 08:36] VITALS: BP 150/61
[2022-07-06] MEDS ORDERED: ASPIRIN 81 MG ENTERIC COATED PO SCH (09:00)
[2022-07-06] MEDS ORDERED: ACETAMINOPHEN 325 MG TAB PO PRN (10:45)
[2022-07-06] MEDS ORDERED: FUROSEMIDE INJ 10 MG/ML 4 ML VIAL IV ONE (11:00)
[2022-07-06] MEDS ORDERED: NICOTINE 14 MG/EA PATCH TOP SCH (11:30)
[2022-07-06 12:32] VITALS: BP 127/66
[2022-07-06] MEDS ORDERED: LORAZEPAM 0.5 MG TAB PO ONE (14:15)
[2022-07-06] MEDS ORDERED: GABAPENTIN 300 MG CAP PO SCH (15:00)
[2022-07-06] MEDS ORDERED: ATIVAN0.5 MG PO (15:47)
[2022-07-07] MEDS ORDERED: OXYBUTYNIN CHLORIDE XL 5 MG TAB PO SCH (09:00)
[2022-07-07] MEDS ORDERED: ATENOLOL 50 MG TAB PO SCH (09:00)
[2022-07-07] MEDS ORDERED: ATORVASTATIN 20 MG TAB PO SCH (21:00)
== END 2022-07-06 16:00 | disposition home or self-care (01) ==
LOC: ER 20:35 → ERHOLD 22:23 → MED/SURG 23:08
PROVIDERS: ADMIT Internal Medicine; ATTEND Internal Medicine
DX: I11.0 Hypertensive heart disease with heart failure (principal); I50.33 Acute on chronic diastolic (congestive) heart failure; J44.9 Chronic obstructive pulmonary disease, unspecified; U07.1 COVID-19; D59.39 Other hemolytic-uremic syndrome; Z79.899 Other long term (current) drug therapy; F41.9 Anxiety disorder, unspecified; F17.210 Nicotine dependence, cigarettes, uncomplicated; E78.5 Hyperlipidemia, unspecified; G62.9 Polyneuropathy, unspecified; Z20.822 Contact with and (suspected) exposure to COVID-19
CPT/HCPCS: 36415 ×2; 71046; 80053 ×2; 82550 ×2; 82553 ×2; 83880; 84484 ×2; 85025 ×2; 85610; 85730; 87400; 93005; 99284; G0378 ×2; J1940; J2270 ×2; J2405; U0002

== ENCOUNTER 2023-03-11 11:38 | Outpatient (RCR) | payer OTHER ==
[~2023-03-11 11:38] MED LIST changes: +ATIVAN0.5 MG PO; +DOXYCYCLINE HY100 MG PO; +MEDROL4 M2 PO; +TRELEGY ELLIPT1 EACH INH
== END 2023-03-25 ==
LOC: RESP 11:38
DX: J96.11 Chronic respiratory failure with hypoxia (principal); J44.9 Chronic obstructive pulmonary disease, unspecified
CPT/HCPCS: 94799

== ENCOUNTER 2023-12-05 20:03 | Emergency (ER) | payer MEDICARE ==
[~2023-12-05] VITALS: Ht 165.1 cm; Wt 83.9 kg
[~2023-12-05 20:03] MED LIST changes: +ALBUTEROL0.63 MG/3 NEB; +ASPIRIN CHEW81 MG PO; +BUDESONIDE-FO10.2 GM; +CICLOPIROX15 GM TOP; +COMPRESSOR NEB1 EACH INH; +HYDROCODONE-ACE10 M1; +IPRAT-ALBUT 0.5-3 ML NEB; +PREDNISONE20 MG PO; +PULMICORT2 ML NEB
[2023-12-05 20:16] VITALS: RESP 20
[2023-12-05] MEDS: HYDROCODONE/APAP 7.5MG-325MG 1 EA TAB PO ONE (21:14)
[2023-12-06 00:58] LABS: BASOPHILS # (AUTO) 0.1 (0.0-0.1); BASOPHILS % 0.3 % (0.0-1.0); EOSINOPHILS % 0.1 % (0.0-6.0); HEMATOCRIT 35.3 % (34.2-44.1); HEMOGLOBIN 10.5 g/dL (12.0-16.0); LYMPHOCYTES % 5.6 % (18.0-39.1); MEAN CORPUSCULAR HEMOGLOBIN 27.5 pg (28-32); MEAN CORPUSCULAR HGB CONC 29.7 g/dL (31-35); MEAN CORPUSCULAR VOLUME 92.4 fL (81-99); MONOCYTES # (AUTO) 1.1 (0.2-0.8); MONOCYTES % 5.9 % (4.4-11.3); NEUTROPHILS # (AUTO) 15.8 (2.1-6.9); PLATELET COUNT 194 x10e3/uL (140-360); RED BLOOD COUNT 3.82 x10e6/uL (3.6-5.1); RED CELL DISTRIBUTION WIDTH 14.5 % (11.7-14.4); WHITE BLOOD COUNT 18.17 x10e3/uL (4.8-10.8)
[2023-12-06 01:14] LABS: ANION GAP 10.2 mmol/L (8-16); CALCIUM 11.8 mg/dL (8.4-10.2); CREATININE, SERUM 0.7 mg/dL (0.57-1.11); POTASSIUM 4.2 mmol/L (3.5-5.1)
[2023-12-06 03:46] VITALS: PULSE 80; TEMP 98.3
[2023-12-06] MEDS ORDERED: ONDANSETRON HCL INJ 2MG/ML 2ML 2 MG/ML VIAL ONE (04:09)
[2023-12-06] MEDS: Morphine 4mg INJECTION 4 MG/ML INJ IV ONE (04:11)
[2023-12-06] MEDS: ONDANSETRON HCL INJ 2MG/ML 2ML 2 MG/ML VIAL IV STA (04:11)
[2023-12-06 04:21] VITALS: BP 161/83; O2SAT 100
[2023-12-06 04:40] LABS: RBC MORPHOLOGY COMMENT ABNORMAL
[2023-12-06 04:41] LABS: ANISOCYTOSIS MODERATE; HYPOCHROMASIA MODERATE; OVALOCYTES FEW; STOMATOCYTES MODERATE
[2023-12-06 04:42] LABS: MICROCYTOSIS SLIGHT; POIKILOCYTOSIS SLIGHT
[2023-12-06 04:43] LABS: PLATELET ESTIMATE ADEQUATE; PLATELET MORPHOLOGY COMMENT NORMAL; POLYCHROMASIA FEW
== END 2023-12-06 04:15 | disposition other institution (70) ==
LOC: ER 20:07
DX: S72.011A Unspecified intracapsular fracture of right femur, initial encounter for closed fracture (principal); W01.0XXA Fall on same level from slipping, tripping and stumbling without subsequent striking against object, initial encounter; Y92.89 Other specified places as the place of occurrence of the external cause; I10 Essential (primary) hypertension; J44.9 Chronic obstructive pulmonary disease, unspecified; F41.9 Anxiety disorder, unspecified; G62.9 Polyneuropathy, unspecified
CPT/HCPCS: 36415; 73502; 73562; 80048; 85025; 99285; J2270; J2405

== ENCOUNTER → 2024-03-22 | Outpatient (REF) | payer MEDICARE ==
[~2024-03-22] MED LIST changes: +BUPROPION HCL100 MG PO; +FAMOTIDINE20 MG PO; +HYDROCODON-ACE1 EA11 PO; +PERCOCET 5-3251 EACH PO; +REGADENOSON 0.4 MG/5 ML SYR IV ONE; +SERTRALINE HCL100 MG PO; +TRELEGY ELLIPT1 EAC1
== END ==
LOC: NM 08:14
PROVIDERS: ATTEND Internal Medicine Cardiovascular Disease
DX: I20.89 Other forms of angina pectoris (principal)
CPT/HCPCS: 78452; 93017; A9502; J2785

== ENCOUNTER 2024-03-25 20:36 | Emergency (ER) | payer MEDICARE ==
[~2024-03-25] VITALS: Ht 165.1 cm; Wt 83.9 kg
[~2024-03-25 20:36] MED LIST changes: -PERCOCET 5-3251 EACH PO; -REGADENOSON 0.4 MG/5 ML SYR IV ONE
[2024-03-25 22:28] VITALS: PULSE 68; RESP 16; TEMP 97.6; O2SAT 99
[2024-03-25] MEDS: TRAMADOL HCL 50 MG TAB PO STA (22:36)
[2024-03-26] MEDS ORDERED: PERCOCET 5-3251 EACH PO (08:11)
== END 2024-03-25 23:15 | disposition home or self-care (01) ==
LOC: ER 20:42
DX: M25.562 Pain in left knee (principal); X50.1XXA Overexertion from prolonged static or awkward postures, initial encounter; Y92.89 Other specified places as the place of occurrence of the external cause; I10 Essential (primary) hypertension; J44.9 Chronic obstructive pulmonary disease, unspecified; G62.9 Polyneuropathy, unspecified; F41.9 Anxiety disorder, unspecified
CPT/HCPCS: 99283

== ENCOUNTER → 2024-03-26 | Day surgery (SDC) | payer MEDICARE ==
[2024-03-18 10:30] LABS: BASOPHILS # (AUTO) 0.1 (0.0-0.1); BASOPHILS % 0.8 % (0.0-1.0); EOSINOPHILS # (AUTO) 0.4 (0.0-0.4); EOSINOPHILS % 3.3 % (0.0-6.0); HEMOGLOBIN 11.3 g/dL (12.0-16.0); LYMPHOCYTES # (AUTO) 1.2 (1.0-3.2); LYMPHOCYTES % 11.3 % (18.0-39.1); MEAN CORPUSCULAR HEMOGLOBIN 25.7 pg (28-32); MEAN CORPUSCULAR HGB CONC 28.3 g/dL (31-35); MEAN CORPUSCULAR VOLUME 90.9 fL (81-99); MONOCYTES # (AUTO) 0.7 (0.2-0.8); MONOCYTES % 6.1 % (4.4-11.3); NEUTROPHILS # (AUTO) 8.6 (2.1-6.9); NEUTROPHILS % 78.1 % (38.7-80.0); PLATELET COUNT 235 x10e3/uL (140-360); RED CELL DISTRIBUTION WIDTH 15.8 % (11.7-14.4); WHITE BLOOD COUNT 10.97 x10e3/uL (4.8-10.8)
[2024-03-18 11:25] LABS: ALBUMIN 3.3 g/dL (3.5-5.0); ALBUMIN/GLOBULIN RATIO 0.9 (0.8-2.0); ANION GAP 18.6 mmol/L (8-16); BILIRUBIN,TOTAL 0.5 mg/dL (0.2-1.2); CALCIUM 9.7 mg/dL (8.4-10.2); CREATININE, SERUM 1.08 mg/dL (0.57-1.11); POTASSIUM 4.6 mmol/L (3.5-5.1); TOTAL PROTEIN 7.1 g/dL (6.5-8.1)
[~2024-03-26] MED LIST changes: +BUPIVACAINE HCL 0.5% INJ 30 ML VIAL INJ ONE; +CEFAZOLIN SODIUM 2 GM ONE; +HEPARIN SOD (PORCINE) 5,000 UNIT/ML VIAL ONE; +LIDOCAINE 1% W/EPINEPHRINE 20 ML VIAL ONE; +PERCOCET 5-3251 EACH PO
[2024-03-26] MEDS: LACTATED RINGER'S 1,000 ML ONE (08:10)
[2024-03-26 11:26] VITALS: TEMP 97.2
[2024-03-26 12:30] VITALS: BP 138/61; PULSE 80; RESP 18; O2SAT 100
== END | disposition home or self-care (01) ==
LOC: OR 07:30
PROVIDERS: ATTEND Orthopaedic Surgery
DX: M87.19 Osteonecrosis due to drugs, multiple sites (principal); S83.242A Other tear of medial meniscus, current injury, left knee, initial encounter; S83.282A Other tear of lateral meniscus, current injury, left knee, initial encounter; M22.42 Chondromalacia patellae, left knee; M67.52 Plica syndrome, left knee; M65.162 Other infective (teno)synovitis, left knee; G47.33 Obstructive sleep apnea (adult) (pediatric); I11.0 Hypertensive heart disease with heart failure; I50.9 Heart failure, unspecified; E78.5 Hyperlipidemia, unspecified; J44.9 Chronic obstructive pulmonary disease, unspecified; E66.01 Morbid (severe) obesity due to excess calories; F41.9 Anxiety disorder, unspecified; Z01.812 Encounter for preprocedural laboratory examination; Z01.818 Encounter for other preprocedural examination; Z79.82 Long term (current) use of aspirin; Z79.899 Other long term (current) drug therapy; Z99.81 Dependence on supplemental oxygen
CPT/HCPCS: 0232T; 27599; 29879; 29880; 36415; 71046; 76000; 80053; 85025; C1713; J0690; J1644

== ENCOUNTER → 2024-09-27 | Outpatient (REF) | payer MEDICARE ==
[~2024-09-27] MED LIST changes: -BUPIVACAINE HCL 0.5% INJ 30 ML VIAL INJ ONE; -CEFAZOLIN SODIUM 2 GM ONE; -HEPARIN SOD (PORCINE) 5,000 UNIT/ML VIAL ONE; -LIDOCAINE 1% W/EPINEPHRINE 20 ML VIAL ONE
[2024-09-27 09:19] LABS: BASOPHILS # (AUTO) 0.1 (0.0-0.1); BASOPHILS % 0.5 % (0.0-1.0); EOSINOPHILS # (AUTO) 0.3 (0.0-0.4); EOSINOPHILS % 3.4 % (0.0-6.0); HEMATOCRIT 36.9 % (34.2-44.1); HEMOGLOBIN 11.2 g/dL (12.0-16.0); LYMPHOCYTES # (AUTO) 1.1 (1.0-3.2); LYMPHOCYTES % 11.3 % (18.0-39.1); MEAN CORPUSCULAR HEMOGLOBIN 27.2 pg (28-32); MEAN CORPUSCULAR HGB CONC 30.4 g/dL (31-35); MEAN CORPUSCULAR VOLUME 89.6 fL (81-99); MONOCYTES # (AUTO) 0.6 (0.2-0.8); MONOCYTES % 6.4 % (4.4-11.3); NEUTROPHILS # (AUTO) 7.6 (2.1-6.9); NEUTROPHILS % 77.4 % (38.7-80.0); PLATELET COUNT 226 x10e3/uL (140-360); RED BLOOD COUNT 4.12 x10e6/uL (3.6-5.1); RED CELL DISTRIBUTION WIDTH 15.3 % (11.7-14.4); WHITE BLOOD COUNT 9.77 x10e3/uL (4.8-10.8)
== END ==
LOC: RAD 08:30 → EDSTATUS 10-05 08:30
PROVIDERS: ATTEND Internal Medicine Gastroenterology
DX: Z01.818 Encounter for other preprocedural examination (principal); Z86.0100 Personal history of colon polyps, unspecified
CPT/HCPCS: 36415; 85025; 93005